=== PATIENT | female | born 1985 | race American Indian/Alaskan Native ===

== ENCOUNTER 2019-11-13 22:39 | Emergency (ER) | payer SELFPAY ==
--- NOTE | 2019-11-14 00:38 | Emergency Department Report ---
<JEFFREY DOVE - Last Filed: 11/14/19 01:51> ED Psych HPI - General Chief Complaint: Earache Stated Complaint: TOOTHACHE/LEFT EAR PAIN Time Seen by Provider: 11/14/19 00:21 Source: patient, EMS Mode of arrival: Ambulatory Limitations: No Limitations - History of Present Illness Initial Comments: This is a 34-year-old female with history of bipolar disorder who presents with congestion in her ears nose and throat. She states that she has had trouble with pollen. She also feels a hole in her tooth. She stated that she was recently released from [facility]. She has auditory hallucinations. She hears sounds of animals. She feels her body is felt with asbestos. She arrived per EMS. She states that she takes risperidone. She denies suicidal homicidal ideation. MD Complaint: other (Hallucinations delusions) -: unknown Associated Psychiatric Symptoms: racing thoughts, auditory hallucinations, delusions Quality: constant Improves With: none Worsens With: none Treatments Prior to Arrival: none - Related Data Home Medications Medication Instructions Recorded Confirmed Last Taken risperiDONE [RisperDAL] 5 mg PO BID 11/14/19 Unknown Allergies Allergy/AdvReac Type Severity Reaction Status Date / Time No Known Allergies Allergy Verified 11/13/19 22:53 ED Review of Systems Comment: All other systems reviewed and negative Constitutional: denies: fever, malaise Respiratory: denies: cough Cardiovascular: denies: chest pain Gastrointestinal: denies: abdominal pain, nausea, vomiting ED Past Medical Hx - Past Medical History Previous Medical History?: Yes Hx Psychiatric Treatment: Yes (bipolar) - Surgical History Past Surgical History?: No - Social History Smoking Status: Current Every Day Smoker Substance Use Type: Alcohol - Medications Home Medications: Home Medications Medication Instructions Recorded Confirmed Last Taken Type risperiDONE [RisperDAL] 5 mg PO BID 11/14/19 Unknown History ED Physical Exam - General Limitations: No Limitations General appearance: alert, in no apparent distress, other (dirty clothing, disheveled) - Head Head exam: Present: atraumatic, normocephalic - Eye Eye exam: Present: normal appearance - ENT ENT exam: Present: mucous membranes moist - Neck Neck exam: Present: normal inspection, full ROM - Respiratory Respiratory exam: Present: normal lung sounds bilaterally. Absent: respiratory distress, wheezes, rales, rhonchi - Cardiovascular Cardiovascular Exam: Present: regular rate, normal rhythm, normal heart sounds. Absent: systolic murmur, diastolic murmur, rubs, gallop - GI/Abdominal GI/Abdominal exam: Present: soft, normal bowel sounds. Absent: distended, tenderness, guarding, rebound - Extremities Exam Extremities exam: Present: normal inspection - Back Exam Back exam: Present: normal inspection - Neurological Exam Neurological exam: Present: alert, oriented X3 - Psychiatric Psychiatric exam: Present: other (pressured speech, disorganized) - Skin Skin exam: Present: warm, dry, intact, normal color. Absent: rash ED Medical Decision Making - Lab Data Result diagrams: 11/14/19 00:38 11/14/19 00:38 - Medical Decision Making Mrs. Aly presents with no indication of infection of the ear, nose throat. Patient does has hx of mental health disorder with reported use of risperidone. She is disorganized with reported auditory hallucations and delusion of asbestos filling her body. She is medically clear for psychiatric care. CBC chemistry serum toxicology urinalysis all within normal limits with exception of mild leukocytosis. Patient does not have signs of infection. I suspect leukocytosis is elevated due to risperidone use. Patient is medically clear for psychiatric care. Currently awaiting treatment recommendations by psychiatric team. ED Disposition Clinical Impression: General medical exam Disposition: - TO HOME OR SELFCARE Condition: Stable Additional Instructions: Please follow-up with outpatient resources that were provided to the patient. Please continue current outpatient medications. Please follow-up with your primary care doctor within the next month. Please return to the emergency room right away with new, worsened or different symptoms, New pain, worsening pain, migration of pain, projectile vomiting, change in mental status, confusion, inability to tolerate liquid feeds, or symptoms not present on the initial emergency room evaluation Professional and Agency Contacts To help [facility](18/01) [place] Crisis Line: Suicide Prevention Line: Crisis Text Line: Text START to [phone] Emergency: 911 Outpatient COMM[facility] Behavioral Health Resources: [facility]: [facility] [address] [place], [place] [address] [facility] - [address] [place] [address] Wednesday thru Wednesday - 8am - 5pm TEN: [facility] Address: [address] [place] [address] Wednesday thru Wednesday- 7am-2pm [facility] Address: [address] [place] [address] Wednesday thrwednesday: 8:30AM-5PM Initialized on 11/14/19 12:39 - END OF NOTE Referrals: NING CLAYTON MD [Staff Physician] - 3-5 Days [facility] [Provider Group] - 3-5 Days <JOSE E ARSHAD - Last Filed: 11/14/19 15:11> ED Review of Systems ROS: Stated complaint: TOOTHACHE/LEFT EAR PAIN Other details as noted in HPI ED Course Vital Signs 11/13/19 11/14/19 11/14/19 22:44 01:44 09:43 Temperature 98.6 F 98.3 F Pulse Rate 101 H 87 Respiratory 12 16 18 Rate Blood Pressure 164/94 Blood Pressure 110/67 [Right] O2 Sat by Pulse 95 100 Oximetry 11/14/19 11/14/19 10:43 14:55 Temperature 98.5 F Pulse Rate 95 H Respiratory 16 17 Rate Blood Pressure 101/49 Blood Pressure [Right] O2 Sat by Pulse 98 Oximetry - Reevaluation(s) Reevaluation #1: 11/14/19 15:09 Patient was cleared medically last night by Dr. Dove. She was seen by the psychiatry team who have indicated that the patient does not meet criteria for 1013 or involuntary hold. Vital signs are unremarkable. Laboratory studies unremarkable. Patient to be discharged. ED Medical Decision Making - Lab Data Result diagrams: 11/14/19 00:38 11/14/19 00:38 Vital Signs 11/13/19 11/14/19 11/14/19 22:44 01:44 09:43 Temperature 98.6 F 98.3 F Pulse Rate 101 H 87 Respiratory 12 16 18 Rate Blood Pressure 164/94 Blood Pressure 110/67 [Right] O2 Sat by Pulse 95 100 Oximetry 11/14/19 11/14/19 10:43 14:55 Temperature 98.5 F Pulse Rate 95 H Respiratory 16 17 Rate Blood Pressure 101/49 Blood Pressure [Right] O2 Sat by Pulse 98 Oximetry Lab Results 11/14/19 11/14/19 11/14/19 Range/Units 00:38 00:38 00:38 WBC 13.0 H (4.5-11.0) K/mm3 RBC 4.06 (3.65-5.03) M/mm3 Hgb 12.0 (10.1-14.3) gm/dl Hct 36.1 (30.3-42.9) % MCV 89 (79-97) fl MCH 30 (28-32) pg MCHC 33 (30-34) % RDW 14.4 (13.2-15.2) % Plt Count 399 (140-440) K/mm3 Lymph % (Auto) 18.8 (13.4-35.0) % [place] % (Auto) 5.5 (0.0-7.3) % Eos % (Auto) 2.0 (0.0-4.3) % Baso % (Auto) 0.2 (0.0-1.8) % Lymph # 2.5 (1.2-5.4) K/mm3 [place] # 0.7 (0.0-0.8) K/mm3 Eos # 0.3 (0.0-0.4) K/mm3 Baso # 0.0 (0.0-0.1) K/mm3 Seg Neutrophils % 73.5 H (40.0-70.0) % Seg Neutrophils # 9.6 H (1.8-7.7) K/mm3 Sodium 134 L (137-145) mmol/L Potassium 4.0 (3.6-5.0) mmol/L Chloride 100.6 (98-107) mmol/L Carbon Dioxide 20 L (22-30) mmol/L Anion Gap 17 mmol/L BUN 12 (7-17) mg/dL Creatinine 0.6 L (0.7-1.2) mg/dL Estimated GFR > 60 ml/min BUN/Creatinine Ratio 20 % Glucose 126 H (65-100) mg/dL Calcium 9.2 (8.4-10.2) mg/dL Total Bilirubin 0.20 (0.1-1.2) mg/dL AST 23 (5-40) units/L ALT 23 (7-56) units/L Alkaline Phosphatase 77 (35-129) units/L Total Protein 7.5 (6.3-8.2) g/dL Albumin 3.9 (3.9-5) g/dL Albumin/Globulin Ratio 1.1 % HCG, Qual (Negative) Urine Color (Yellow) Urine Turbidity (Clear) Urine pH (5.0-7.0) Ur Specific [place] (1.003-1.030) Urine Protein (Negative) mg/dL Urine Glucose (UA) (Negative) mg/dL Urine Ketones (Negative) mg/dL Urine Blood (Negative) Urine Nitrite (Negative) Urine Bilirubin (Negative) Urine Urobilinogen (<2.0) mg/dL Ur Leukocyte Esterase (Negative) Urine WBC (Auto) (0.0-6.0) /HPF Urine RBC (Auto) (0.0-6.0) /HPF U Epithel Cells (Auto) (0-13.0) /HPF Urine Mucus /HPF Salicylates < 0.3 L (2.8-20.0) mg/dL Urine Opiates Screen Urine Methadone Screen Acetaminophen (10.0-30.0) ug/mL Ur Barbiturates Screen Ur Phencyclidine Scrn Ur Amphetamines Screen U Benzodiazepines Scrn Urine Cocaine Screen U Marijuana (THC) Screen Drugs of Abuse Note Plasma/Serum Alcohol (0-0.07) % 11/14/19 11/14/19 11/14/19 Range/Units 00:38 00:38 00:38 WBC (4.5-11.0) K/mm3 RBC (3.65-5.03) M/mm3 Hgb (10.1-14.3) gm/dl Hct (30.3-42.9) % MCV (79-97) fl MCH (28-32) pg MCHC (30-34) % RDW (13.2-15.2) % Plt Count (140-440) K/mm3 Lymph % (Auto) (13.4-35.0) % [place] % (Auto) (0.0-7.3) % Eos % (Auto) (0.0-4.3) % Baso % (Auto) (0.0-1.8) % Lymph # (1.2-5.4) K/mm3 [place] # (0.0-0.8) K/mm3 Eos # (0.0-0.4) K/mm3 Baso # (0.0-0.1) K/mm3 Seg Neutrophils % (40.0-70.0) % Seg Neutrophils # (1.8-7.7) K/mm3 Sodium (137-145) mmol/L Potassium (3.6-5.0) mmol/L Chloride (98-107) mmol/L Carbon Dioxide (22-30) mmol/L Anion Gap mmol/L BUN (7-17) mg/dL Creatinine (0.7-1.2) mg/dL Estimated GFR ml/min BUN/Creatinine Ratio % Glucose (65-100) mg/dL Calcium (8.4-10.2) mg/dL Total Bilirubin (0.1-1.2) mg/dL AST (5-40) units/L ALT (7-56) units/L Alkaline Phosphatase (35-129) units/L Total Protein (6.3-8.2) g/dL Albumin (3.9-5) g/dL Albumin/Globulin Ratio % HCG, Qual Negative (Negative) Urine Color (Yellow) Urine Turbidity (Clear) Urine pH (5.0-7.0) Ur Specific [place] (1.003-1.030) Urine Protein (Negative) mg/dL Urine Glucose (UA) (Negative) mg/dL Urine Ketones (Negative) mg/dL Urine Blood (Negative) Urine Nitrite (Negative) Urine Bilirubin (Negative) Urine Urobilinogen (<2.0) mg/dL Ur Leukocyte Esterase (Negative) Urine WBC (Auto) (0.0-6.0) /HPF Urine RBC (Auto) (0.0-6.0) /HPF U Epithel Cells (Auto) (0-13.0) /HPF Urine Mucus /HPF Salicylates (2.8-20.0) mg/dL Urine Opiates Screen Urine Methadone Screen Acetaminophen < 5.0 L (10.0-30.0) ug/mL Ur Barbiturates Screen Ur Phencyclidine Scrn Ur Amphetamines Screen U Benzodiazepines Scrn Urine Cocaine Screen U Marijuana (THC) Screen Drugs of Abuse Note Plasma/Serum Alcohol < 0.01 (0-0.07) % 11/14/19 11/14/19 Range/Units 01:09 01:09 WBC (4.5-11.0) K/mm3 RBC (3.65-5.03) M/mm3 Hgb (10.1-14.3) gm/dl Hct (30.3-42.9) % MCV (79-97) fl MCH (28-32) pg MCHC (30-34) % RDW (13.2-15.2) % Plt Count (140-440) K/mm3 Lymph % (Auto) (13.4-35.0) % [place] % (Auto) (0.0-7.3) % Eos % (Auto) (0.0-4.3) % Baso % (Auto) (0.0-1.8) % Lymph # (1.2-5.4) K/mm3 [place] # (0.0-0.8) K/mm3 Eos # (0.0-0.4) K/mm3 Baso # (0.0-0.1) K/mm3 Seg Neutrophils % (40.0-70.0) % Seg Neutrophils # (1.8-7.7) K/mm3 Sodium (137-145) mmol/L Potassium (3.6-5.0) mmol/L Chloride (98-107) mmol/L Carbon Dioxide (22-30) mmol/L Anion Gap mmol/L BUN (7-17) mg/dL Creatinine (0.7-1.2) mg/dL Estimated GFR ml/min BUN/Creatinine Ratio % Glucose (65-100) mg/dL Calcium (8.4-10.2) mg/dL Total Bilirubin (0.1-1.2) mg/dL AST (5-40) units/L ALT (7-56) units/L Alkaline Phosphatase (35-129) units/L Total Protein (6.3-8.2) g/dL Albumin (3.9-5) g/dL Albumin/Globulin Ratio % HCG, Qual (Negative) Urine Color Straw (Yellow) Urine Turbidity Clear (Clear) Urine pH 6.0 (5.0-7.0) Ur Specific [place] 1.016 (1.003-1.030) Urine Protein <15 mg/dl (Negative) mg/dL Urine Glucose (UA) Neg (Negative) mg/dL Urine Ketones Neg (Negative) mg/dL Urine Blood Neg (Negative) Urine Nitrite Neg (Negative) Urine Bilirubin Neg (Negative) Urine Urobilinogen < 2.0 (<2.0) mg/dL Ur Leukocyte Esterase Neg (Negative) Urine WBC (Auto) 4.0 (0.0-6.0) /HPF Urine RBC (Auto) 5.0 (0.0-6.0) /HPF U Epithel Cells (Auto) < 1.0 (0-13.0) /HPF Urine Mucus Few /HPF Salicylates (2.8-20.0) mg/dL Urine Opiates Screen Presumptive negative Urine Methadone Screen Presumptive negative Acetaminophen (10.0-30.0) ug/mL Ur Barbiturates Screen Presumptive negative Ur Phencyclidine Scrn Presumptive negative Ur Amphetamines Screen Presumptive negative U Benzodiazepines Scrn Presumptive negative Urine Cocaine Screen Presumptive negative U Marijuana (THC) Screen Presumptive negative Drugs of Abuse Note Disclamer Plasma/Serum Alcohol (0-0.07) % Critical care attestation.: If time is entered above; I have spent that time in minutes in the direct care of this critically ill patient, excluding procedure time. ED Disposition Is pt being admited?: No Does the pt Need Aspirin: No
[2019-11-14 01:32] LABS: Basophils % (Auto) 0.2 % (0.0-1.8); Eosinophils # (Auto) 0.3 K/mm3 (0.0-0.4); Hematocrit 36.1 % (30.3-42.9); Lymphocytes # (Auto) 2.5 K/mm3 (1.2-5.4); Lymphocytes % (Auto) 18.8 % (13.4-35.0); Mean Corpuscular HGB Conc 33 % (30-34); Mean Corpuscular Volume 89 fl (79-97); Monocytes # (Auto) 0.7 K/mm3 (0.0-0.8); Monocytes % (Auto) 5.5 % (0.0-7.3); Platelet Count 399 K/mm3 (140-440); Red Blood Count 4.06 M/mm3 (3.65-5.03); Red Cell Distribution Width 14.4 % (13.2-15.2)
[2019-11-14 01:38] LABS: Bilirubin,Urine NEG (Negative); Blood,Urine NEG (Negative); Color,Urine Straw (Yellow); Mucus,Urine FEW /HPF; Protein,Urine <15 mg/dL mg/dL (Negative); Urobilinogen,Urine < 2.0 mg/dL (<2.0)
[2019-11-14 01:38] LABS: Alanine Aminotransferase 23 units/L (7-56); Albumin 3.9 g/dL (3.9-5); BUN/Creatinine Ratio 20; Blood Urea Nitrogen 12 mg/dL (7-17); Calcium 9.2 mg/dL (8.4-10.2); Hemolysis Index 2
[2019-11-14 01:59] LABS: Amphetamine Screen,Urine PRESUMPTIVE NEGATIVE; Benzodiazepines Screen,Urine PRESUMPTIVE NEGATIVE; Cannabinoid Screen,Urine PRESUMPTIVE NEGATIVE; Cocaine Screen,Urine PRESUMPTIVE NEGATIVE; Methadone Screen,Urine PRESUMPTIVE NEGATIVE; Opiate Screen,Urine PRESUMPTIVE NEGATIVE
[2019-11-14] MEDS ORDERED: ACETAMINOPHEN 325 MG TAB PO ONE (08:55)
[2019-11-14 16:03] VITALS: BP 125/68
== END 2019-11-14 16:03 | disposition home or self-care (01) ==
LOC: EEVIPCON 22:39 → ED 22:39
DX: H92.02 Otalgia, left ear (principal); K08.89 Other specified disorders of teeth and supporting structures; R09.81 Nasal congestion; R44.0 Auditory hallucinations; F31.9 Bipolar disorder, unspecified; F17.200 Nicotine dependence, unspecified, uncomplicated; Z79.899 Other long term (current) drug therapy
CPT/HCPCS: 36415; 80053; 80307; 80320; 81001; 84703; 85025; G0480

== ENCOUNTER 2019-12-04 19:25 | Emergency (ER) | payer SELFPAY ==
[2019-12-04 19:40] VITALS: BP 128/80
--- NOTE | 2019-12-04 19:42 | Emergency Department Report ---
ED ENT HPI - General Chief complaint: Earache Stated complaint: EAR PAIN Time Seen by Provider: 12/04/19 19:39 Source: patient, EMS Mode of arrival: Ambulatory Limitations: No Limitations - History of Present Illness Location: L ear, tooth # 1 - dental pain area. no abscess or bleeding. no erythema Severity: mild, moderate Quality: aching, dull Improves with: none Worsens with: none Context- Dental: history of dental caries - Related Data Home Medications Medication Instructions Recorded Confirmed Last Taken risperiDONE [RisperDAL] 5 mg PO BID 11/14/19 Unknown Allergies Allergy/AdvReac Type Severity Reaction Status Date / Time No Known Allergies Allergy Verified 11/13/19 22:53 ED Dental HPI - General Chief complaint: Earache Stated complaint: EAR PAIN Time Seen by Provider: 12/04/19 19:39 Source: patient, EMS Mode of arrival: Ambulatory Limitations: No Limitations - Related Data Home Medications Medication Instructions Recorded Confirmed Last Taken risperiDONE [RisperDAL] 5 mg PO BID 11/14/19 Unknown Allergies Allergy/AdvReac Type Severity Reaction Status Date / Time No Known Allergies Allergy Verified 11/13/19 22:53 ED Review of Systems ROS: Stated complaint: EAR PAIN Other details as noted in HPI Comment: All other systems reviewed and negative ED Past Medical Hx - Past Medical History Hx Psychiatric Treatment: Yes (bipolar) - Social History Smoking Status: Current Every Day Smoker Substance Use Type: Alcohol - Medications Home Medications: Home Medications Medication Instructions Recorded Confirmed Last Taken Type risperiDONE [RisperDAL] 5 mg PO BID 11/14/19 Unknown History ED Physical Exam - General Limitations: No Limitations ED Course Vital Signs 12/04/19 19:29 Temperature 97.0 F L Pulse Rate 109 H Respiratory 18 Rate Blood Pressure 128/80 O2 Sat by Pulse 98 Oximetry Critical care attestation.: If time is entered above; I have spent that time in minutes in the direct care of this critically ill patient, excluding procedure time. ED Disposition Clinical Impression: Dentalgia, Otalgia Disposition: DC- TO HOME OR SELFCARE Is pt being admited?: No Does the pt Need Aspirin: No Condition: Stable Instructions: Toothache (ED), Dental Caries (ED) Referrals: [facility] [Outside] - 3-5 Days
== END 2019-12-04 20:46 | disposition left against medical advice (07) ==
LOC: ED 19:25
DX: K08.89 Other specified disorders of teeth and supporting structures (principal); H92.03 Otalgia, bilateral
CPT/HCPCS: 99282

== ENCOUNTER 2021-03-06 18:56 | Emergency (ER) | payer MEDICARE ==
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
--- NOTE | 2021-03-06 21:03 | Emergency Department Report ---
HPI <JEFFREY PERES - Last Filed: 03/07/21 17:50> - HPI HPI: This is a 35-year-old female presents to the emergency department with a complaint that she is in labor and has been in labor for the past week. However, I feel the patient needs a mental health evaluation. She says that she has been for over 1 year. She says that she was recently at [facility] and had an ultrasound that showed "gas in my belly, but I saw the baby and there." Patient says that both of her previous children were born 1 week shy of 1 year gestation. The patient also says "this [facility] tried to dylan nge the sex of one of my kids and I am still upset about that." When asked if the patient has any history of psychiatric conditions, the patient says that she was diagnosed with schizoaffective because "I have a brain, but I did not have a brain growing up." Patient denies any hallucinations, suicidal or homicidal ideations. She denies any other past medical history. She is a tobacco smoker. She currently lives in a new shelter. <HANNA MCDERMOTT S - Last Filed: 03/10/21 06:09> - General Chief Complaint: Psych Time Seen by Provider: 03/06/21 21:00 ED Past Medical Hx <LARISAJEFFREY - Last Filed: 03/07/21 17:50> - Past Medical History Previous Medical History?: Yes Hx Psychiatric Treatment: Yes (bipolar) - Surgical History Past Surgical History?: No - Social History Smoking Status: Never Smoker Substance Use Type: None <HANNA MCDERMOTT - Last Filed: 03/10/21 06:09> - Medications Home Medications: Home Medications Medication Instructions Recorded Confirmed Last Taken Type risperiDONE [RisperDAL] 5 mg PO BID 11/14/19 Unknown History Nitrofurantoin [place]/M-Cryst 100 mg PO Q12HR #14 capsule 02/04/20 Unknown Rx [Macrobid CAP] ED Review of Systems ROS: Stated complaint: GENERAL/LABOR? Other details as noted in HPI <JEFFREY PERES - Last Filed: 03/07/21 17:50> ROS: Stated complaint: GENERAL/LABOR? Other details as noted in HPI Comment: All other systems reviewed and negative Constitutional: denies: chills, fever Eyes: denies: eye pain, vision change ENT: denies: ear pain, throat pain Respiratory: denies: cough, shortness of breath Cardiovascular: denies: chest pain, palpitations Gastrointestinal: denies: nausea, vomiting Genitourinary: denies: dysuria, discharge Musculoskeletal: denies: joint swelling, arthralgia Skin: denies: rash, lesions Neurological: denies: headache, weakness <HANNA MCDERMOTT S - Last Filed: 03/10/21 06:09> Physical Exam - Physical Exam Vital Signs: Vital Signs 03/06/21 03/06/21 03/07/21 20:37 22:38 02:26 Temperature 98.3 F 97.7 F Pulse Rate 101 H 78 Respiratory 18 18 16 Rate Blood Pressure 159/99 105/51 [Right] O2 Sat by Pulse 96 100 98 Oximetry <JEFFREY PERES - Last Filed: 03/07/21 17:50> - Physical Exam Vital Signs: Vital Signs 03/06/21 20:37 Temperature 98.3 F Pulse Rate 101 H Respiratory 18 Rate Blood Pressure 159/99 [Right] O2 Sat by Pulse 96 Oximetry Physical Exam: GENERAL: The patient is well-developed well-nourished. HENT: Normocephalic. Atraumatic. Patient has moist mucous membranes. EYES: Extraocular motions are intact. NECK: Supple. Trachea is midline. CHEST/LUNGS: Clear to auscultation. There is no respiratory distress noted. HEART/CARDIOVASCULAR: Regular. There is no tachycardia. There is no murmur. ABDOMEN: Abdomen is soft, nontender. Patient has normal bowel sounds. Obese habitus. SKIN: Skin is warm and dry. NEURO: The patient is awake, alert, and oriented. The patient is cooperative. Normal speech. MUSCULOSKELETAL: There is no tenderness or deformity. There is no limitation range of motion. <HANNA MCDERMOTT - Last Filed: 03/10/21 06:09> ED Course Vital Signs 03/06/21 03/06/21 03/07/21 20:37 22:38 02:26 Temperature 98.3 F 97.7 F Pulse Rate 101 H 78 Respiratory 18 18 16 Rate Blood Pressure 159/99 105/51 [Right] O2 Sat by Pulse 96 100 98 Oximetry <JEFFREY PERES - Last Filed: 03/07/21 17:50> Vital Signs 03/06/21 20:37 Temperature 98.3 F Pulse Rate 101 H Respiratory 18 Rate Blood Pressure 159/99 [Right] O2 Sat by Pulse 96 Oximetry <HANNA MCDERMOTT - Last Filed: 03/10/21 06:09> ED Medical Decision Making - Lab Data Result diagrams: 03/06/21 20:48 03/06/21 20:48 - Medical Decision Making Patient has been accepted at [facility]. Awaiting transportation. <JEFFREY PERES - Last Filed: 03/07/21 17:50> - Lab Data Result diagrams: 03/06/21 20:48 03/06/21 20:48 Lab Results 03/06/21 03/06/21 03/06/21 Range/Units 20:48 20:48 20:48 WBC 11.2 H (4.5-11.0) K/mm3 RBC 3.80 (3.65-5.03) M/mm3 Hgb 12.2 (10.1-14.3) gm/dl Hct 34.8 (30.3-42.9) % MCV 92 (79-97) fl MCH 32 (28-32) pg MCHC 35 H (30-34) % RDW 13.8 (13.2-15.2) % Plt Count 301 (140-440) K/mm3 Add Manual Diff Complete Total Counted 100 Seg Neuts % (Manual) 58.0 (40.0-70.0) % Lymphocytes % (Manual) 28.0 (13.4-35.0) % Monocytes % (Manual) 8.0 H (0.0-7.3) % Eosinophils % (Manual) 5.0 H (0.0-4.3) % Basophils % (Manual) 1.0 (0.0-1.8) % Nucleated RBC % Not Reportable Seg Neutrophils # Man 6.5 (1.8-7.7) K/mm3 Band Neutrophils # 0.0 K/mm3 Lymphocytes # (Manual) 3.1 (1.2-5.4) K/mm3 Abs React Lymphs (Man) 0.0 K/mm3 Monocytes # (Manual) 0.9 H (0.0-0.8) K/mm3 Eosinophils # (Manual) 0.6 H (0.0-0.4) K/mm3 Basophils # (Manual) 0.1 (0.0-0.1) K/mm3 Metamyelocytes # 0.0 K/mm3 Myelocytes # 0.0 K/mm3 Promyelocytes # 0.0 K/mm3 Blast Cells # 0.0 K/mm3 WBC Morphology Not Reportable Hypersegmented Neuts Not Reportable Hyposegmented Neuts Not Reportable Hypogranular Neuts Not Reportable Smudge Cells Not Reportable Toxic Granulation Not Reportable Toxic Vacuolation Not Reportable Dohle Bodies Not Reportable Pelger-Huet Anomaly Not Reportable Cookie Rods Not Reportable Platelet Estimate Not Reportable Clumped Platelets Not Reportable Plt Clumps, EDTA Not Reportable Large Platelets Not Reportable Giant Platelets Not Reportable Platelet Satelliting Not Reportable Plt Morphology Comment Not Reportable RBC Morphology Normal Dimorphic RBCs Not Reportable Polychromasia Not Reportable Hypochromasia Not Reportable Poikilocytosis Not Reportable Anisocytosis Not Reportable Microcytosis Not Reportable Macrocytosis Not Reportable Spherocytes Not Reportable Pappenheimer Bodies Not Reportable Sickle Cells Not Reportable Target Cells Not Reportable Tear Drop Cells Not Reportable Ovalocytes Not Reportable Helmet Cells Not Reportable Eller-[place] Bodies Not Reportable Hoyt Rings Not Reportable [place] Cells Not Reportable Bite Cells Not Reportable Crenated Cell Not Reportable Elliptocytes Not Reportable Acanthocytes (Spur) Not Reportable Rouleaux Not Reportable Hemoglobin C Crystals Not Reportable Schistocytes Not Reportable Malaria parasites Not Reportable [place] Bodies Not Reportable Hem Pathologist Commnt No Sodium 139 (137-145) mmol/L Potassium 4.0 (3.6-5.0) mmol/L Chloride 102.3 (98-107) mmol/L Carbon Dioxide 24 (22-30) mmol/L Anion Gap 17 mmol/L BUN 12 (7-17) mg/dL Creatinine 0.7 (0.6-1.2) mg/dL Estimated GFR > 60 ml/min BUN/Creatinine Ratio 17 % Glucose 155 H (65-100) mg/dL Calcium 9.2 (8.4-10.2) mg/dL HCG, Qual (Negative) Urine Color (Yellow) Urine Turbidity (Clear) Urine pH (5.0-7.0) Ur Specific [place] (1.003-1.030) Urine Protein (Negative) mg/dL Urine Glucose (UA) (Negative) mg/dL Urine Ketones (Negative) mg/dL Urine Blood (Negative) Urine Nitrite (Negative) Urine Bilirubin (Negative) Urine Urobilinogen (<2.0) mg/dL Ur Leukocyte Esterase (Negative) Urine WBC (Auto) (0.0-6.0) /HPF Urine RBC (Auto) (0.0-6.0) /HPF U Epithel Cells (Auto) (0-13.0) /HPF Urine Bacteria (Auto) (Negative) /HPF Urine Yeast (Budding) /HPF Urine Opiates Screen Urine Methadone Screen Ur Barbiturates Screen Ur Phencyclidine Scrn Ur Amphetamines Screen U Benzodiazepines Scrn Urine Cocaine Screen U Marijuana (THC) Screen Drugs of Abuse Note Plasma/Serum Alcohol < 0.01 (0-0.07) % 03/06/21 03/06/21 03/06/21 Range/Units 20:53 Unknown Unknown WBC (4.5-11.0) K/mm3 RBC (3.65-5.03) M/mm3 Hgb (10.1-14.3) gm/dl Hct (30.3-42.9) % MCV (79-97) fl MCH (28-32) pg MCHC (30-34) % RDW (13.2-15.2) % Plt Count (140-440) K/mm3 Add Manual Diff Total Counted Seg Neuts % (Manual) (40.0-70.0) % Lymphocytes % (Manual) (13.4-35.0) % Monocytes % (Manual) (0.0-7.3) % Eosinophils % (Manual) (0.0-4.3) % Basophils % (Manual) (0.0-1.8) % Nucleated RBC % Seg Neutrophils # Man (1.8-7.7) K/mm3 Band Neutrophils # K/mm3 Lymphocytes # (Manual) (1.2-5.4) K/mm3 Abs React Lymphs (Man) K/mm3 Monocytes # (Manual) (0.0-0.8) K/mm3 Eosinophils # (Manual) (0.0-0.4) K/mm3 Basophils # (Manual) (0.0-0.1) K/mm3 Metamyelocytes # K/mm3 Myelocytes # K/mm3 Promyelocytes # K/mm3 Blast Cells # K/mm3 WBC Morphology Hypersegmented Neuts Hyposegmented Neuts Hypogranular Neuts Smudge Cells Toxic Granulation Toxic Vacuolation Dohle Bodies Pelger-Huet Anomaly Cookie Rods Platelet Estimate Clumped Platelets Plt Clumps, EDTA Large Platelets Giant Platelets Platelet Satelliting Plt Morphology Comment RBC Morphology Dimorphic RBCs Polychromasia Hypochromasia Poikilocytosis Anisocytosis Microcytosis Macrocytosis Spherocytes Pappenheimer Bodies Sickle Cells Target Cells Tear Drop Cells Ovalocytes Helmet Cells Eller-[place] Bodies Hoyt Rings Anderson Cells Bite Cells Crenated Cell Elliptocytes Acanthocytes (Spur) Rouleaux Hemoglobin C Crystals Schistocytes Malaria parasites [place] Bodies Hem Pathologist Commnt Sodium (137-145) mmol/L Potassium (3.6-5.0) mmol/L Chloride (98-107) mmol/L Carbon Dioxide (22-30) mmol/L Anion Gap mmol/L BUN (7-17) mg/dL Creatinine (0.6-1.2) mg/dL Estimated GFR ml/min BUN/Creatinine Ratio % Glucose (65-100) mg/dL Calcium (8.4-10.2) mg/dL HCG, Qual Negative (Negative) Urine Color Yellow (Yellow) Urine Turbidity Clear (Clear) Urine pH 7.0 (5.0-7.0) Ur Specific [place] 1.016 (1.003-1.030) Urine Protein <15 mg/dl (Negative) mg/dL Urine Glucose (UA) Neg (Negative) mg/dL Urine Ketones Tr (Negative) mg/dL Urine Blood Sm (Negative) Urine Nitrite Neg (Negative) Urine Bilirubin Neg (Negative) Urine Urobilinogen 2.0 (<2.0) mg/dL Ur Leukocyte Esterase Lg (Negative) Urine WBC (Auto) 24.0 H (0.0-6.0) /HPF Urine RBC (Auto) 14.0 (0.0-6.0) /HPF U Epithel Cells (Auto) 3.0 (0-13.0) /HPF Urine Bacteria (Auto) 1+ (Negative) /HPF Urine Yeast (Budding) Few /HPF Urine Opiates Screen Negative Urine Methadone Screen Negative Ur Barbiturates Screen Negative Ur Phencyclidine Scrn Negative Ur Amphetamines Screen Negative U Benzodiazepines Scrn Negative Urine Cocaine Screen Negative U Marijuana (THC) Screen Negative Drugs of Abuse Note Disclamer Plasma/Serum Alcohol (0-0.07) % - Medical Decision Making This patient presents to the emergency department for what appears to be a mental health evaluation. She says that she is here because she is actively in labor and has been in labor for the past week. The patient also says that she has been for about 1 year. She says that both of her 2 children both went to about a 1 year gestation. The patient does admit to a psychiatric history now because "I have a brain, but I did not grow up with a brain." She denies any suicidal or homicidal ideations. She denies any hallucinations. The patient does appear to show some acute psychosis. For this reason she has been placed on an ED hold and the psychiatric team will see the patient to assist with further disposition. Labs have been mostly unremarkable including CBC, metabolic panel, negative blood alcohol, negative UDS, urinalysis, and the patient is not . If the psychiatric team feels that the patient requires inpatient stabilization, I would consider the patient medically cleared. <HANNA MCDERMOTT S - Last Filed: 03/10/21 06:09> Critical care attestation.: If time is entered above; I have spent that time in minutes in the direct care of this critically ill patient, excluding procedure time. <JEFFREY PERES - Last Filed: 03/07/21 17:50> Critical Care Time: No Critical care attestation.: If time is entered above; I have spent that time in minutes in the direct care of this critically ill patient, excluding procedure time. <HANNA MCDERMOTT S - Last Filed: 03/10/21 06:09> ED Disposition Is pt being admited?: No Does the pt Need Aspirin: No <JEFFREY PERES - Last Filed: 03/07/21 17:50> Is pt being admited?: No Time of Disposition: 00:43 <HANNA MCDERMOTT S - Last Filed: 03/10/21 06:09> Clinical Impression: Acute psychosis UTI (urinary tract infection) Qualifiers: Urinary tract infection type: acute cystitis Hematuria presence: without hematuria Qualified Code(s): N30.00 - Acute cystitis without hematuria Schizoaffective disorder Qualifiers: Schizoaffective disorder type: unspecified Qualified Code(s): F25.9 - Schizoaffective disorder, unspecified Bipolar disorder Qualifiers: Active/Remission status: remission status unspecified Qualified Code(s): F31.9 - Bipolar disorder, unspecified [facility] Condition: Stable Referrals: PRIMARY CARE,MD [Primary Care Provider] - 3-5 Days
[2021-03-06 21:37] LABS: Hematocrit 34.8 % (30.3-42.9); Hemoglobin 12.2 gm/dl (10.1-14.3); Mean Corpuscular HGB Conc 35 % (30-34); Mean Corpuscular Volume 92 fl (79-97); Platelet Count 301 K/mm3 (140-440); Red Cell Distribution Width 13.8 % (13.2-15.2)
[2021-03-06 21:43] LABS: Bacteria,Urine 1+ /HPF (Negative); Bilirubin,Urine NEG (Negative); Blood,Urine SM (Negative); Color,Urine Yellow (Yellow); Protein,Urine <15 mg/dL mg/dL (Negative)
[2021-03-06 21:47] LABS: Amphetamine Screen,Urine Negative; Benzodiazepines Screen,Urine Negative; Cannabinoid Screen,Urine Negative; Cocaine Screen,Urine Negative; Methadone Screen,Urine Negative; Opiate Screen,Urine Negative
[2021-03-06 22:16] LABS: Blood Urea Nitrogen 12 mg/dL (7-17); Calcium 9.2 mg/dL (8.4-10.2); Hemolysis Index 7
[2021-03-06 22:17] LABS: BUN/Creatinine Ratio 17
[2021-03-06 22:28] LABS: Total Cells Counted 100
[2021-03-06 22:29] LABS: RBC Morphology Normal
--- NOTE | 2021-03-07 10:32 | Event Note ---
I have reviewed documentation. I reviewed labs. Reviewed vital signs. Patient is medically clear for psychiatric care. Awaiting treatment recommendations by psychiatric team. hCG negative.
--- NOTE | 2021-03-07 11:20 | Consultation ---
History of Present Illness - Reason for Consult Consult date: 03/07/21 Reason for consult: psychosis - History of Present Psychiatric Illness Per ER Note: This is a 35-year-old female presents to the emergency department with a complaint that she is in labor and has been in labor for the past week. However, I feel the patient needs a mental health evaluation. She says that she has been for over 1 year. She says that she was recently at [facility] and had an ultrasound that showed "gas in my belly, but I saw the baby and there." Patient says that both of her previous children were born 1 week shy of 1 year gestation. The patient also says "this hospital tried to change the sex of one of my kids and I am still upset about that." When asked if the patient has any history of psychiatric conditions, the patient says that she was diagnosed with schizoaffective because "I have a brain, but I did not have a brain growing up." Patient denies any hallucinations, suicidal or homicidal ideations. She denies any other past medical history. She is a tobacco smoker. She currently lives in a new [place] [facility]. Matilde Aly is a 35y/o female patient who states she came to the ER because she's "in labor." The patient is delusional. Her thinking is disorganized. The patient says "I need to have my baby but they think I'm crazy." She says "I'm due but I held on the the child for over a year like I did my other two children." She says she has a history of schizoaffective. She says "but that's not wrong with me. I need to have a child." She denies SI/HI. She says "I can hold on to my child as long as I want to. I did it before." The patient says the hospital is up to something and trying to do little things to her child to prevent the labor. She says people are abusing her and not listening to her. She denies illicit drug use or alcohol. PAST PSYCHIATRIC HISTORY: Diagnoses: schizoaffective, bipolar Suicide attempts or Self-harm behavior: Denies Prior psychiatric hospitalizations: Denies Substance Abuse history: Denies Previous psychiatric medications tried: depakote, risperidone, pepcid Outpatient treatment: yes PAST MEDICAL HISTORY: None reported or document Family Psychiatric History: None reported or documented SOCIAL HISTORY Marital Status: Living [place]rangements[place] [facility] Employment Status: Unemployed Access to guns/weapons: Yes Education: History of Abuse:Denies Legal History: Denies REVIEW OF SYSTEMS Constitutional: Negative for weight loss ENT: Negative for stridor Respiratory: Negative for cough or hemoptysis All other systems reviewed and are negative MENTAL STATUS EXAMINATION General Appearance and Behavior: Age appropriate, good hygiene, wearing appropriate clothes. Cooperation: Cooperative Psychomotor Behavior: Psychomotor normal Mood: good Affect and affective range: congruent with stated mood Thought Process: disorganized Thought Content: delusions Speech: Normal volume, Regular rate and rhythm, Suicidal Ideation: Denies Homicidal Ideation: Denies Hallucinations: denies Delusions: Yes Impulse Control: limited Insight and Judgment: Limited Memory: Limited Attention: Distractible Orientation: alert and oriented Assessment and Plan (1)Schizophrenia Treatment Plan 1013 Risperidone 1mg po BID Trazodone 50mg po qhs Vistaril 50mg po BID Sitter: per primary Medical: per primary Disposition: Recommend acute psychiatric inpatient treatment Will follow Case staffed with Dr. Curry Medications and Allergies Allergies Allergy/AdvReac Type Severity Reaction Status Date / Time No Known Allergies Allergy Verified 11/13/19 22:53 Home Medications Medication Instructions Recorded Confirmed Last Taken Type risperiDONE [RisperDAL] 5 mg PO BID 11/14/19 Unknown History Nitrofurantoin [place]/M-Cryst 100 mg PO Q12HR #14 capsule 02/04/20 Unknown Rx [Macrobid CAP] Active Meds: Active Medications Nitrofurantoin Macrocrystals (Nitrofurantoin Monohyd/M-Cryst 100 Mg Cap) 100 mg PO Q12HR CONTRERAS Last Admin: 03/07/21 00:00 Dose: 100 mg Documented by: Mental Status Exam - Vital signs Last Vital Signs Temp 97.7 F 03/07/21 02:26 Pulse 78 03/07/21 02:26 Resp 16 03/07/21 02:26 BP 105/51 03/07/21 02:26 Pulse Ox 98 03/07/21 02:26 Results Result Diagrams: 03/06/21 20:48 03/06/21 20:48 Abnormal lab results 03/06/21 03/06/21 03/06/21 Range/Units 20:48 20:48 Unknown WBC 11.2 H (4.5-11.0) K/mm3 MCHC 35 H (30-34) % Monocytes % (Manual) 8.0 H (0.0-7.3) % Eosinophils % (Manual) 5.0 H (0.0-4.3) % Monocytes # (Manual) 0.9 H (0.0-0.8) K/mm3 Eosinophils # (Manual) 0.6 H (0.0-0.4) K/mm3 Glucose 155 H (65-100) mg/dL Urine WBC (Auto) 24.0 H (0.0-6.0) /HPF All other labs normal.
[2021-03-07] MEDS ORDERED: ALBUTEROL 2.5 MG/3 ML NEBU IH ONE (12:50)
[2021-03-07] MEDS ORDERED: IPRATROPIUM 0.02% NEBU 2.5 ML IH ONE (12:50)
[2021-03-07] MEDS: DIVALPROEX DR 250 MG TAB PO SCH ×2 (13:32→22:31)
[2021-03-07] MEDS: risperiDONE 1 MG TAB PO SCH ×2 (13:32→22:31)
[2021-03-07] MEDS: NITROFURANTOIN MONOHYD/M-CRYST 100 MG CAP PO SCH ×3 (13:32→22:31)
[2021-03-08 00:22] VITALS: BP 99/57
== END 2021-03-07 22:32 ==
LOC: ED 18:56
DX: F23 Brief psychotic disorder (principal); N39.0 Urinary tract infection, site not specified; F25.9 Schizoaffective disorder, unspecified; F31.9 Bipolar disorder, unspecified; F17.200 Nicotine dependence, unspecified, uncomplicated
CPT/HCPCS: 36415; 80048; 80307; 81001; 84703; 85007; 85025; 87086; 99285; Q0177; 80320; G0480

== ENCOUNTER 2021-08-13 08:26 | Emergency (ER) | payer MEDICAID, MEDICARE ==
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
--- NOTE | 2021-08-13 12:18 | XRay Report ---
CHEST 2 VIEWS INDICATION / CLINICAL INFORMATION: dyspnea. COMPARISON: None available. FINDINGS: SUPPORT DEVICES: None. HEART / MEDIASTINUM: No significant abnormality. LUNGS / PLEURA: No significant pulmonary or pleural abnormality. No pneumothorax. ADDITIONAL FINDINGS: No significant additional findings. IMPRESSION: 1. No acute findings. Signer Name: Barney Bailey DO Signed: 08/13/2021 12:13 PM Workstation Name: [id number]
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
[2021-08-13] MEDS ORDERED: METOCLOPRAMIDE 10 MG TAB PO ONE (12:37)
[2021-08-13] MEDS ORDERED: ACETAMINOPHEN 500 MG TAB PO ONE (12:37)
[2021-08-13 12:53] VITALS: BP 128/90
--- NOTE | 2021-08-14 13:18 | Electrocardiograph Report ---
[facility] Test Date: 2021-08-13 Test Time: 11:19:22 Pat Name: PAT BEY Department: Room: Gender: F Senior Mechanical Engineer: ARACELI : 1985 Requested By: DAVID ACUÑA Order Number: [id number] Reading MD: Donaldo Herrera Measurements Intervals [place]elia Rate: 76 P: 75 ND: 145 QRS: 61 QRSD: 85 T: 42 QT: 362 QTc: 407 Interpretive Statements Sinus rhythm No previous ECG available for comparison Electronically Signed On 08-14-2021 13:18:02 EST by Donaldo Herrera
== END 2021-08-13 12:52 | disposition home or self-care (01) ==
LOC: ED 08:26
DX: S09.90XA Unspecified injury of head, initial encounter (principal); E66.01 Morbid (severe) obesity due to excess calories; R06.00 Dyspnea, unspecified; F31.9 Bipolar disorder, unspecified; X58.XXXA Exposure to other specified factors, initial encounter; Y93.89 Activity, other specified; Y92.89 Other specified places as the place of occurrence of the external cause; Y99.8 Other external cause status
CPT/HCPCS: 70450; 71046; 93005; 93010; 99284